=== PATIENT | female | born 1960 | race Caucasian/White ===

== ENCOUNTER 2024-04-08 16:47 | Emergency (ER) | payer MEDICARE, SELFPAY ==
[2024-04-08 17:00] VITALS: BP 194/104; PULSE 109; RESP 20; TEMP 36.9; O2SAT 98; BMI 33.2
--- NOTE | 2024-04-08 17:33 | CTR_ITS ---
PROCEDURE INFORMATION: Exam: CT Abdomen And Pelvis With Contrast Exam date and time: 04/08/2024 6:51 PM Age: 63 years old Clinical indication: Abdominal pain; Generalized; Additional info: Diffuse abd pain/hx of chrons TECHNIQUE: Imaging protocol: Computed tomography of the abdomen and pelvis with contrast. Radiation optimization: All CT scans at this facility use at least one of these dose optimization techniques: automated exposure control; mA and/or kV adjustment per patient size (includes targeted exams where dose is matched to clinical indication); or iterative reconstruction. Contrast material: OMNIPAQUE 350; Contrast volume: 100 ml; Contrast route: INTRAVENOUS (IV); COMPARISON: No relevant prior studies available. RADIATION DOSE METRICS: Total DLP (mGy-cm): 661.16 FINDINGS: Diaphragm: Small hiatal hernia. Liver: The liver is mildly enlarged, measuring 19.7 cm craniocaudal. Diffuse hepatic steatosis. Gallbladder and biliary ducts: Status post cholecystectomy. Pancreas: Normal. No ductal dilation. Spleen: Normal. No splenomegaly. Adrenal glands: Normal. No mass. Kidneys and ureters: Several small right renal cortical calcifications. Subcentimeter hypodensities are too small to characterize but likely represent cysts. Stomach and bowel: Segmental wall thickening of the distal ileum, including along the terminal ileum. No bowel obstruction. Appendix: No evidence of appendicitis. Intraperitoneal space: Unremarkable. No free air. No significant fluid collection. Vasculature: Moderate atherosclerotic aortoiliac calcifications. No aortic aneurysm. Lymph nodes: Unremarkable. No enlarged lymph nodes. Urinary bladder: Unremarkable as visualized. Reproductive: Status post hysterectomy. No suspicious adnexal mass. Bones/joints: Unremarkable. No acute fracture. Soft tissues: Unremarkable. CT/CT abdomen pelvis w con* [id number] IMPRESSION: 1. Segmental thickening of the distal ileum including the terminal ileum is compatible with infectious/inflammatory ileitis. No abscess formation. 2. Hepatomegaly with diffuse hepatic steatosis. 3. Additional ancillary findings as above. COMMENTS: Consistent with the [employer]'s Incidental Findings Committee white paper (J Am Filipe Radiol 2018): Any incidental renal lesion less than 1 cm or classified as too small to characterize, or any incidental cystic renal lesion characterized as simple-appearing, is likely benign. No follow-up imaging is recommended for these lesions per consensus recommendations based on imaging criteria.
--- NOTE | 2024-04-08 17:36 | W.ED.ABDPA2 ---
HPI - Abdominal Pain General: Chief Complaint: Abdominal Pain Stated Complaint: headache, Pain everwhere, Diarrhea Time Seen by Provider: 04/08/24 17:18 Source: patient Mode of arrival: ambulatory Limitations: no limitations History of Present Illness: Patient is a 63-year-old female with past medical history of Crohn's disease who is presenting to the emergency department with diffuse abdominal pain, stating she is having a flareup of her Crohn's. She moved from [place] over the summer, and since then has been off of her Humira, methotrexate, and injections for her Crohn's disease. She is stating that she is having copious diarrhea with blood, headache, and nausea every morning. She is also reporting fecal incontinence, and believing that she needs antibiotics. She states that she has been unable to get into primary care or see a specialist since moving down here, as she is not scheduled to see primary care until June 2024. She states it has been a couple of years since her last colonoscopy/upper endoscopy. Blood pressure on arrival was 194/104, though noted to be afebrile however heart rate elevated at 109. She states that her symptoms at this time feel consistent with prior infections that required IV antibiotics. She denies any fevers at home, chest pain, shortness of breath, or other symptoms. MD elicited complaint: abdominal pain Pertinent past history: other (Crohn disease) Onset (ago): day(s) Pain Consistency: constant Location: Diffuse Severity: severe Quality: cramping Context: history of similar episodes Associated Symptoms: Reports change in stool character, diarrhea, hematochezia, fecal incontinence and nausea; Denies bloating, chills, constipation, dysuria, fever(s) and vomiting Related Data Previous Rx's Medication Instructions Recorded ciprofloxacin HCl 500 mg tablet 500 mg PO BID 10 days #20 tabs 04/08/24 (Cipro) metronidazole 500 mg tablet 500 mg PO BID 10 days #20 tabs 04/08/24 prednisone 20 mg tablet 20 mg PO DAILY #30 tabs 04/08/24 Allergies Allergy/AdvReac Type Severity Reaction Status Date / Time acetaminophen [From Percocet] Allergy Unknown Verified 04/08/24 17:08 codeine Allergy ADR-Vomitin Verified 04/08/24 17:08 g oxycodone Allergy Unknown Verified 04/08/24 17:08 Review of Systems General: Reports: 10 or more systems reviewed and unremarkable except in HPI and below Const: Denies: fever(s), chills, change in appetite, change in weight or diaphoresis ENMT: Denies: throat pain or hoarseness Card: Denies: chest pain, palpitations or lightheadedness Resp: Denies: dyspnea, productive cough or wheezing GI: Reports: abdominal pain, nausea, diarrhea, fecal incontinence, change in stool character and hematochezia; Denies: vomiting, constipation or bloating : Denies: flank pain, difficulty voiding, dysuria, urinary frequency or urinary urgency Musc: Denies: neck pain or back pain Skin/Breast: Denies: rash or new lesions Neuro: Reports: headache(s); Denies: dizziness Physical Exam Const: COMMON NORMALS: patient oriented x3, no limitations, alert and well nourished GENERAL APPEARANCE: cooperative ORIENTATION/CONSCIOUSNESS: Yes awake OTHER: Appears uncomfortable at this time, lying in positioning HENMT: COMMON NORMALS: normocephalic, atraumatic, hearing grossly normal bilaterally, external ears normal, Normal external nose present, Normal nasal mucous membranes and turbinates present and moist oral mucous membranes HEAD & SCALP: normocephalic and atraumatic NOSE: Normal external nose present and Normal nasal mucous membranes and turbinates present EXTERNAL EAR: Yes external ears normal Eye: COMMON NORMALS: Equal, round and reactive pupils present, EOMs intact bilaterally, conjunctivae normal and normal visual lovell by confrontation CONJUNCTIVA: Yes conjunctivae normal PUPIL: Yes Equal, round and reactive pupils present Neck/C-Spine: COMMON NORMALS: full ROM, supple, no meningeal signs and no JVD Resp: COMMON NORMALS: normal respiratory effort, No retractions, No use of accessory muscles and clear to auscultation bilaterally AUSCULTATION: clear to auscultation bilaterally, no crackles, no rales, no rhonchi and no wheezes Cardio: COMMON NORMALS: no JVD, regular rhythm, S1 normal heart sound present, S2 normal heart sound present, No gallops present (Cardio), No clicks present (Cardio), No murmurs present (Cardio), No rub (Cardio) and Peripheral pulses 2+ throughout RATE: tachycardic RHYTHM: regular rhythm HEART SOUNDS: S1 normal heart sound present and S2 normal heart sound present PERIPHERAL PULSES: Peripheral pulses 2+ throughout GI: COMMON NORMALS: Soft to palpation, No hepatosplenomegaly present and no masses INSPECTION: Yes central obesity AUSCULTATION: Yes normoactive bowel sounds PALPATION: Yes Soft to palpation, Yes Tenderness to palpation present (GI) (Moderate to severe diffuse tenderness to light palpation), No Guarding due to palpation present (GI), No Rigid due to palpation and Yes No hepatosplenomegaly present RECTAL EXAM: deferred Extremity: COMMON NORMALS: normal to inspection and full ROM Neuro: COMMON NORMALS: patient oriented x3, moves all extremities, no focal motor deficits and no sensory deficits noted SENSORIUM/ORIENTATION: Yes alert MENINGEAL SIGNS: Yes no meningeal signs Psych: COMMON NORMALS: mental status grossly normal, cooperative and speech normal SPEECH: Yes normal speech Skin: COMMON NORMALS: no rashes or lesions noted GENERAL SKIN EXAM: no rashes or lesions noted Course Vital Signs: Vital signs: Vital Signs Temperature 98.5 F 04/08/24 17:00 Pulse Rate 79 04/08/24 20:00 Respiratory Rate 16 04/08/24 20:00 Blood Pressure 166/98 04/08/24 20:00 Pulse Oximetry 98 04/08/24 20:00 Oxygen Delivery Me thod Room Air 04/08/24 20:00 MDM - Abdominal Pain Medical Decision Making Patient presented, history of Crohn's disease, stating that she was having a flareup. Her lab work was unremarkable, lactic was slightly high, she was given fluids for this. CT showed evidence of terminal ileitis, consistent with complication from Crohn's disease. Because of this she will be started on outpatient steroids and antibiotics. She does not take any biologic medication at this time, she states that she used to be on methotrexate, Humira, and monthly infusions. Because of this, told her to call her primary care tomorrow to arrange a close follow-up and to begin taking these again as this likely explains her flareup of her Crohn's disease. However due to her pain being controlled here in the emergency department and overall negative laboratory workup, will try outpatient therapy first. She is comfortable with discharge home, return cautions were given. Discussed this case with Dr. Sal. Lab Data 04/08/24 17:53 04/08/24 17:53 Labs/Radiology: Radiology Impressions Abdomen/Pelvis CT 04/08/24 17:33 IMPRESSION: 1. Segmental thickening of the distal ileum including the terminal ileum is compatible with infectious/inflammatory ileitis. No abscess formation. 2. Hepatomegaly with diffuse hepatic steatosis. 3. Additional ancillary findings as above. COMMENTS: Consistent with the [employer]'s Incidental Findings Committee white paper (J Am Filipe Radiol 2018): Any incidental renal lesion less than 1 cm or classified as too small to characterize, or any incidental cystic renal lesion characterized as simple-appearing, is likely benign. No follow-up imaging is recommended for these lesions per consensus recommendations based on imaging criteria. Laboratory Results WBC 7.49 10^3/uL (3.29-11.43) 04/08/24 17:53 RBC 4.85 10^6/uL (3.85-5.65) 04/08/24 17:53 Hgb 11.90 g/dL (11.27-16.99) 04/08/24 17:53 Hct 37.9 % (36-47) 04/08/24 17:53 MCV 78.1 fl (85-98) L 04/08/24 17:53 MCH 24.5 pg (27-33) L 04/08/24 17:53 MCHC 31.4 g/dL (30-55) 04/08/24 17:53 RDW 14.8 % (12.1-15.1) 04/08/24 17:53 Plt Count 291 10^3/cmm (157-399) 04/08/24 17:53 MPV 9.7 fL (7.4-10.4) 04/08/24 17:53 Neut % (Auto) 55.8 % 04/08/24 17:53 Lymph % (Auto) 35.6 % 04/08/24 17:53 [place] % (Auto) 6.1 % 04/08/24 17:53 Eos % (Auto) 1.7 % 04/08/24 17:53 Baso % (Auto) 0.5 % 04/08/24 17:53 Neut # (Auto) 4.17 10^3/uL (1.8-7.7) 04/08/24 17:53 Lymph # (Auto) 2.7 10^3/uL (0.8-4.8) 04/08/24 17:53 [place] # (Auto) 0.5 10^3/uL (0.2-0.9) 04/08/24 17:53 Eos # (Auto) 0.1 10^3/uL (0.0-0.8) 04/08/24 17:53 Baso # (Auto) 0.0 10^3/uL (0.0-0.1) 04/08/24 17:53 Nucleated RBC % (auto) 0 % 04/08/24 17:53 Nucleated RBCs # 0.0 /100WBC 04/08/24 17:53 ESR 24 mm/hr (0-15) H 04/08/24 17:53 Sodium 139 mmol/L (136-145) 04/08/24 17:53 Potassium 3.8 mmol/L (3.5-5.1) 04/08/24 17:53 Chloride 103 mmol/L (98-107) 04/08/24 17:53 Carbon Dioxide 21 mmol/L (22-29) L 04/08/24 17:53 Anion Gap 18.8 (5-19) 04/08/24 17:53 BUN 13 mg/dL (8-23) 04/08/24 17:53 Creatinine 1.0 mg/dL (0.5-0.9) H 04/08/24 17:53 GFR Calculation 56.2 mL/min (90-130) L 04/08/24 17:53 Glucose 158 mg/dL (65-115) H 04/08/24 17:53 Calculated Osmolality 291 mOsm/kg (285-295) 04/08/24 17:53 Lactic Acid 2.3 mmol/L (0.5-2.2) H 04/08/24 17:53 Calcium 8.9 mg/dL (8.5-10.5) 04/08/24 17:53 Total Bilirubin 0.3 mg/dL (0.15-1.2) 04/08/24 17:53 AST 14 U/L (0-32) 04/08/24 17:53 ALT 13 U/L (0-33) 04/08/24 17:53 Alkaline Phosphatase 88 U/L (35-105) 04/08/24 17:53 C-Reactive Protein 10.5 mg/L (0.0-4.9) H 04/08/24 17:53 Total Protein 5.9 g/dL (6.6-8.7) L 04/08/24 17:53 Albumin 3.7 g/dL (3.5-5.2) 04/08/24 17:53 Globulin 2.2 g/dL (1.3-4.6) 04/08/24 17:53 Lipase 40 U/L (13-60) 04/08/24 17:53 Procalcitonin 0.06 ng/mL (0-0.5) 04/08/24 17:53 Amorphous Sediment Not Reportable 04/08/24 19:55 All radiology interpretation(s) finalized by discharge Discharge Plan Discharge Patient Disposition: Home Clinical Impression: Ileitis, terminal, Crohn disease Condition: Stable Prescriptions: New metronidazole 500 mg tablet 500 mg PO BID 10 Days Qty: 20 0RF ciprofloxacin HCl [Cipro] 500 mg tablet 500 mg PO BID 10 Days Qty: 20 0RF prednisone 20 mg tablet 20 mg PO DAILY Qty: 30 0RF Rx Instructions: Take 3 tabs (60mg) on days 1-3, take 2 tabs (40mg) on days 4-6, and take 1 tab (20mg) on days 7-10 Discharge Orders: Discharge ED (Routine); Ordered 04/08/24 Ordered By: Sathish Booker Referrals: Yajaira Raman MD [Family Provider] - Patient Instructions: Crohn Disease (ED) Activity Restrictions/Additional Instructions: Take steroids as directed. Take antibiotics. Please call primary care as instructed to arrange for closer follow-up and to begin taking your biologic medications. Clear liquid diet. Please return with any new or worsening of symptoms. Coding Level of Care Code ED Older Adult Social Work Specialist for [facility]
[2024-04-08] MEDS: sodium chloride 0.9% 1,000 ML 999 ML IV (17:45)
[2024-04-08 18:03] VITALS: BP 190/103; PULSE 79; RESP 16; O2SAT 99
[2024-04-08] MEDS: ondansetron 2 mg/ML SDV 2 mL 4 MG IVP (18:07)
[2024-04-08 18:15] LABS: Basophils % 0.5 %; Eosinophils # 0.1 10^3/uL (0.0-0.8); Eosinophils % 1.7 %; Hematocrit 37.9 % (36-47); Lymphocytes # 2.7 10^3/uL (0.8-4.8); Lymphocytes % 35.6 %; Mean Corpuscular HGB Conc 31.4 g/dL (30-55); Mean Corpuscular Hemoglobin 24.5 pg (27-33); Mean Corpuscular Volume 78.1 fl (85-98); Mean Platelet Volume 9.7 fL (7.4-10.4); Monocytes # 0.5 10^3/uL (0.2-0.9); Monocytes % 6.1 %; Neutrophils # 4.17 10^3/uL (1.8-7.7); Neutrophils % 55.8 %; Nucleated Red Blood Cells % 0 %; Platelet Count 291 10^3/cmm (157-399); Red Blood Count 4.85 10^6/uL (3.85-5.65); Red Cell Distribution Width 14.8 % (12.1-15.1); White Blood Count 7.49 10^3/uL (3.29-11.43)
[2024-04-08 18:35] LABS: Alanine Aminotransferase 13 U/L (0-33); Albumin Level 3.7 g/dL (3.5-5.2); Alkaline Phosphatase 88 U/L (35-105); Aspartate Amino Transferase 14 U/L (0-32); Blood Urea Nitrogen 13 mg/dL (8-23); C Reactive Protein 10.5 mg/L (0.0-4.9); Calcium 8.9 mg/dL (8.5-10.5); Carbon Dioxide 21 mmol/L (22-29); Chloride 103 mmol/L (98-107); Creatinine Clr Calc Pharmacy 55.8143; Globulin 2.2 g/dL (1.3-4.6); Glomerular Filtration Rate 56.2 mL/min (90-130); Glucose 158 mg/dL (65-115); Lipase 40 U/L (13-60); Osmolality Calculated 291 mOsm/kg (285-295); Sodium 139 mmol/L (136-145); Total Bilirubin 0.3 mg/dL (0.15-1.2); Total Protein 5.9 g/dL (6.6-8.7)
[2024-04-08 18:36] LABS: Lactic Sepsis W/Reflex 2.3 mmol/L (0.5-2.2)
[2024-04-08 18:37] LABS: Erythrocyte Sedimentation Rate 24 mm/hr (0-15)
[2024-04-08 18:40] LABS: Anion Gap 18.8 (5-19); Potassium 3.8 mmol/L (3.5-5.1)
[2024-04-08 18:42] LABS: Procalcitonin 0.06 ng/mL (0-0.5)
[2024-04-08] MEDS: iohexol 350 mg/mL 500 mL Btl (per mL) IV (19:02)
[2024-04-08 19:25] VITALS: BP 190/103; O2SAT 97
[2024-04-08 19:59] LABS: Reflex Lactate Order REFLEX LACTIC ORDERD
[2024-04-08 20:00] VITALS: BP 166/98; PULSE 79; RESP 16; O2SAT 98
[2024-04-08 20:01] LABS: Bilirubin Urine Negative (Negative); Blood Urine 1+ (Negative); Glucose Urine UA Negative (Normal); Ketones Urine Negative (Negative); Leukocyte Esterase Urine 2+ (Negative); Nitrate Urine Positive (Negative); Protein Urine 1+ (Negative); Urine Appearance Clear (CLEAR); Urine Color Yellow (Yellow); Urobilinogen Urine 0.2 mg/dL (Negative); pH Urine 5.5 (5-7)
[2024-04-08 20:06] LABS: Add Urine Microscopic? YES; Bacteria Urine 4+ /hpf; Hyaline Casts Urine 2.05 /lpf; RBC Urine 0-2 /hpf (0-2); Squamous Epithelial Cell Urine 0-5 /hpf (0-5); WBC Urine >100 /hpf (0-5)
[2024-04-08 20:13] LABS: Specific Gravity, Urine 1.053 (1.005-1.030)
[2024-04-08 20:14] LABS: Add Urine Culture? Yes
[2024-04-08 20:15] VITALS: RESP 18; O2SAT 97
[2024-04-08] MEDS: dexamethasone 10 mg/mL INJ IVP (20:15)
[2024-04-08] MEDS: ciprofloxacin 500 mg Tablet PO (20:15)
[2024-04-08] MEDS: metroNIDAZOLE 500 MG Tablet PO (20:15)
[2024-04-08] MEDS: HYDROmorphone 1 mg/mL INJ 1 mL 0.4 MG IVP (20:15)
[2024-04-08 20:49] LABS: Lactic Acid level (Lactate) 1.8 mmol/L (0.5-2.2)
[2024-04-08 21:15] VITALS: BP 160/82; PULSE 73; RESP 14; O2SAT 96
== END 2024-04-08 21:19 | disposition home or self-care (01) ==
PROVIDERS: Emergency Provider Physician Assistant; Family Provider Family Medicine
DX: K52.9 Noninfective gastroenteritis and colitis, unspecified (principal); K50.90 Crohn's disease, unspecified, without complications
CPT/HCPCS: 74177; 80053; 81001; 83605; 83690; 84145; 85025; 85651; 86140; 87040; 87077; 87086; 87186; 96361; 96374; 96375; 99285; J1100; J1171; J2405; J7030

== ENCOUNTER → 2024-04-28 15:28 | Outpatient (BNVA) | payer MEDICARE, SELFPAY | PROVIDERS: Family Provider Family Medicine; PCP Family Medicine; Visit Provider Family Medicine | DX: E11.9 Type 2 diabetes mellitus without complications (principal); R53.81 Other malaise; R53.83 Other fatigue; E55.9 Vitamin D deficiency, unspecified; E53.8 Deficiency of other specified B group vitamins; E21.3 Hyperparathyroidism, unspecified; Z51.81 Encounter for therapeutic drug level monitoring | CPT/HCPCS: 80053; 82306; 82310; 82607; 83036; 83970; 84439; 84443; 85025 ==

== ENCOUNTER → 2024-07-29 11:36 | Outpatient (BNVA) | payer OTHER, SELFPAY | PROVIDERS: Family Provider Family Medicine; PCP Family Medicine; Visit Provider Family Medicine | DX: E53.8 Deficiency of other specified B group vitamins (principal); E11.9 Type 2 diabetes mellitus without complications; Z51.81 Encounter for therapeutic drug level monitoring; Z13.220 Encounter for screening for lipoid disorders; E55.9 Vitamin D deficiency, unspecified | CPT/HCPCS: 80053; 80061; 82306; 82607; 83036; 83721; 85025 ==

== ENCOUNTER → 2024-08-07 11:07 | Outpatient (BNVA) | payer OTHER, MEDICARE, SELFPAY | PROVIDERS: Family Provider Family Medicine; PCP Family Medicine; Referring Provider Family Medicine; Visit Provider Internal Medicine Rheumatology | DX: Z79.899 Other long term (current) drug therapy (principal); M06.00 Rheumatoid arthritis without rheumatoid factor, unspecified site; M51.369 Other intervertebral disc degeneration, lumbar region without mention of lumbar back pain or lower extremity pain; M25.561 Pain in right knee; M81.0 Age-related osteoporosis without current pathological fracture; M25.551 Pain in right hip; M25.552 Pain in left hip | CPT/HCPCS: 36415; 72100; 72202; 73562; 80076; 82306; 82310; 82565; 85025; 85651; 86140; 86431 ==

== ENCOUNTER 2024-08-18 13:56 | Outpatient (CLI) | payer MEDICARE, SELFPAY ==
--- NOTE | 2024-08-18 14:30 | XR_ITS ---
WS: [id number] SCREENING DEXA SCAN [facility] CLINICAL INFORMATION: M81.0 - Age-related osteoporosis without current patholog... COMPARISON: None. FINDINGS: The L1-L4 bone mineral density measures 1.018 g/cm2. This corresponds to a T score score of -1.4 and Z score of -0.2. Left femoral neck bone mineral density measures 0.723 g/cm2. This corresponds to a T score of -2.3 and Z score of -1.4. Right femoral neck bone mineral density measures 0.785 g/cm2. This corresponds to a T score -1.8of and Z score of -0.9. Mean femoral neck bone mineral density measures 0.754 g/cm2. This corresponds to a T score of -2.0 and Z score of -1.1. XR/XR DEXA axial skeleton* [id number] IMPRESSION: Osteopenia lumbar spine. Osteopenia femoral necks. Patient's FRAX calculated 10 year probability for major osteoporotic fracture i s 13.3% and osteoporotic hip fracture is 3.0%.
== END 2024-08-18 13:57 | disposition home or self-care (01) ==
PROVIDERS: Family Provider Family Medicine; PCP Family Medicine; Visit Provider Internal Medicine Rheumatology
DX: M81.0 Age-related osteoporosis without current pathological fracture (principal)
CPT/HCPCS: 77080

== ENCOUNTER 2024-08-19 09:57 | Oncology outpatient (recurring) (ONCR) | payer MEDICARE, SELFPAY ==
[2024-08-19] MEDS: denosumab 60 mg SDV SUBCUT (10:27)
[2024-08-19 10:29] VITALS: BP 153/84; PULSE 82; RESP 16; TEMP 36.6; O2SAT 98
== END 2024-08-25 23:59 | disposition home or self-care (01) ==
PROVIDERS: Family Provider Family Medicine; PCP Family Medicine; Visit Provider Internal Medicine Rheumatology
DX: M81.0 Age-related osteoporosis without current pathological fracture (principal); Z79.899 Other long term (current) drug therapy
CPT/HCPCS: 96372; J0897

== ENCOUNTER 2024-09-30 13:30 | Oncology outpatient (recurring) (ONCR) | payer MEDICARE, SELFPAY ==
[2024-09-30] MEDS: GUSELKUMAB IV (14:13)
[2024-09-30] MEDS: SODIUM CHLORIDE 0.9% IV (14:13)
[2024-09-30 15:29] VITALS: BP 145/71; PULSE 65; RESP 16; TEMP 36.7; O2SAT 96
== END 2024-09-30 23:59 | disposition home or self-care (01) ==
LOC: ONCMED 10-01 09:11
PROVIDERS: Family Provider Family Medicine; PCP Family Medicine; Visit Provider Internal Medicine Rheumatology
DX: M81.0 Age-related osteoporosis without current pathological fracture (principal); Z79.899 Other long term (current) drug therapy
CPT/HCPCS: 96365; A4222; J1628; J7050

== ENCOUNTER → 2024-10-31 08:05 | Outpatient (BNVA) | payer MEDICARE, SELFPAY | PROVIDERS: Family Provider Family Medicine; PCP Family Medicine; Visit Provider Family Medicine | DX: I10 Essential (primary) hypertension (principal); E11.9 Type 2 diabetes mellitus without complications; Z51.81 Encounter for therapeutic drug level monitoring; Z13.6 Encounter for screening for cardiovascular disorders | CPT/HCPCS: 80053; 80061; 83036; 83721; 85025 ==

== ENCOUNTER → 2025-01-05 10:48 | Outpatient (BNVA) | payer MEDICARE, SELFPAY | PROVIDERS: Family Provider Family Medicine; PCP Family Medicine; Visit Provider Internal Medicine Rheumatology | DX: M81.0 Age-related osteoporosis without current pathological fracture (principal); Z79.899 Other long term (current) drug therapy; M15.9 Polyosteoarthritis, unspecified | CPT/HCPCS: 99214 ==

== ENCOUNTER → 2025-02-10 16:28 | Outpatient (BNVA) | payer MEDICARE, SELFPAY | PROVIDERS: Family Provider Family Medicine; PCP Family Medicine; Visit Provider Family Medicine | DX: E55.9 Vitamin D deficiency, unspecified (principal); Z51.81 Encounter for therapeutic drug level monitoring; E11.9 Type 2 diabetes mellitus without complications | CPT/HCPCS: 80053; 82306; 83036; 85025 ==

== ENCOUNTER 2025-02-17 09:50 | Oncology outpatient (recurring) (ONCR) | payer MEDICARE, SELFPAY ==
[2025-02-17] MEDS: denosumab 60 mg SDV (Infusion Clinic Only) SUBCUT (10:23)
== END 2025-02-24 23:59 | disposition home or self-care (01) ==
LOC: ONCMED 09:52
PROVIDERS: PCP Family Medicine; Visit Provider Internal Medicine Rheumatology
DX: M81.0 Age-related osteoporosis without current pathological fracture (principal); Z79.899 Other long term (current) drug therapy
CPT/HCPCS: 96372; J0897

== ENCOUNTER → 2025-05-12 09:35 | Outpatient (BNVA) | payer MEDICARE, SELFPAY | PROVIDERS: PCP Family Medicine; Visit Provider Family Medicine | DX: Z51.81 Encounter for therapeutic drug level monitoring (principal); E11.9 Type 2 diabetes mellitus without complications; E53.8 Deficiency of other specified B group vitamins; D64.9 Anemia, unspecified | CPT/HCPCS: 80053; 82607; 83036; 83540; 85025 ==